=== PATIENT | female | born 1970 | race Caucasian/White ===

== ENCOUNTER 2020-06-01 10:09 | Outpatient (REF) | payer OTHER, SELFPAY ==
--- NOTE | ~2020-06-01 | XR_ITS ---
EXAMINATION: XR FOOT, RIGHT CLINICAL INFORMATION: Injury of right foot COMPARISON: None TECHNIQUE: AP, lateral, and oblique views of the right foot. FINDINGS: Fifth toe: There is mild arthrosis of the PIP joint with marginal osteophytes and subchondral cystic change. I do not see a fracture. There is fusion across the DIP joint There is a moderate-sized plantar calcaneal spur. 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 No fracture.
== END 2020-06-01 10:10 | disposition home or self-care (01) ==
LOC: HO.XRAY 10:09
PROVIDERS: PCP Family Medicine; Visit Provider Family Medicine
DX: S99.921A Unspecified injury of right foot, initial encounter (principal)
CPT/HCPCS: 73630

== ENCOUNTER 2020-09-03 15:30 | Outpatient (REF) | payer OTHER, SELFPAY ==
--- NOTE | ~2020-09-03 | XR_ITS ---
EXAMINATION: XR HAND, LEFT CLINICAL INFORMATION: Left thumb pain COMPARISON: None TECHNIQUE: PA, lateral, and oblique views of the left hand. FINDINGS: Bone alignment is normal. No fracture or dislocation is seen. There is mild arthritis at the first SNF joint with joint space narrowing. Joint spaces are otherwise normal. Soft tissues are normal. XR/XR hand LT min 3V IMPRESSION: Mild arthritis at the first SNF joint.
== END 2020-09-03 15:31 | disposition home or self-care (01) ==
LOC: HO.XRAY 15:30
PROVIDERS: PCP Family Medicine; Visit Provider Family Medicine
DX: M79.645 Pain in left finger(s) (principal)
CPT/HCPCS: 73130

== ENCOUNTER 2020-12-28 08:52 | Day surgery (SDC) | payer OTHER, SELFPAY ==
[2020-12-25 09:51] VITALS: BMI 28.3
--- NOTE | 2020-12-27 10:45 | HO.ANESPROP2 ---
Documented by User: Naomi Garibay NP 12/27/20 10:45 HPI - Anesthesia Eval Consult details Narrative: 50yo F for Upper Endoscopy with Balloon Dilitation PMFSH Past Medical History Medical History Asthma COVID-19 vaccine series completed GERD (gastroesophageal reflux disease) Migraines Surgical History Surgical History History of esophagogastroduodenoscopy (EGD) History of surgery on left wrist Hx of appendectomy Hx of section Hx of laparoscopy Hx of tubal ligation Social History Social History Patient Tobacco Use Status: Current everyday Tobacco user Tobacco use type: Cigarette Cigarettes Per Day: 10 Use of substances other than those prescribed or required for medical reasons: No Have you been hit, kicked, punched, or otherwise hurt by someone within the past year? If so, by whom?: No Are you DNR?: No Advance Directives: No Advance Directives Information Provided: Yes Advance Directives on File: No Recently lost weight without trying: No Eating poorly because of decreased appetite: No Nutrition Risks: No Nutritional Risk Poor oral hygiene: No (lower partial plate) Meds Allergies Allergy/AdvReac Type Severity Reaction Status Date / Time rabbit dander Allergy Severe asthma dx Verified 12/25/20 09:51 when got a rabbit as a pet (no longer has) shellfish derived Allergy Intermediate itching/ pepper Unverified 12/25/20 09:49 [SHELLFISH DERIVED] taste sulfamethoxazole Allergy Intermediate Hives Unverified 12/25/20 09:49 [From BACTRIM] trimethoprim [From BACTRIM] Allergy Intermediate Hives Unverified 12/25/20 09:49 Home Medications Medication Instructions Recorded Confirmed Last Taken Type albuterol sulfate 90 mcg/actuation 2 puff INHALATION Q4-6H PRN 12/25/20 12/25/20 Unknown History aerosol inhaler (Ventolin HFA) omeprazole 20 mg tablet,delayed 20 mg PO DAILY 12/25/20 12/25/20 Unknown History release Exam Exam Date and Time: December 27, 2020 1045 Height,Weight and Vital Signs: Height 5 ft 5.5 in Weight 78.471 kg Assessment and Plan Assessment Anesthesia Assessment: Chart Reviewed Documented by User: Fariba Longo MD 12/28/20 09:52 PMFSH Past Medical History Medical History Asthma COVID-19 vaccine series completed GERD (gastroesophageal reflux disease) Migraines Family History Family history of problems with anesthesia: No Surgical History Surgical History History of esophagogastroduodenoscopy (EGD) History of surgery on left wrist Hx of appendectomy Hx of section Hx of laparoscopy Hx of tubal ligation History of Problems with Anesthesia: No Social History Social History Patient Tobacco Use Status: Current everyday Tobacco user Tobacco use type: Cigarette Cigarettes Per Day: 10 Use of substances other than those prescribed or required for medical reasons: No Have you been hit, kicked, punched, or otherwise hurt by someone within the past year? If so, by whom?: No Are you DNR?: No Advance Directives: No Advance Directives Information Provided: Yes Advance Directives on File: No Recently lost weight without trying: No Eating poorly because of decreased appetite: No Nutrition Risks: No Nutritional Risk Poor oral hygiene: No (lower partial plate) Meds Allergies Allergy/AdvReac Type Severity Reaction Status Date / Time rabbit dander Allergy Severe asthma dx Verified 12/25/20 09:51 when got a rabbit as a pet (no longer has) shellfish derived Allergy Intermediate itching/ pepper Unverified 12/25/20 09:49 [SHELLFISH DERIVED] taste sulfamethoxazole Allergy Intermediate Hives Unverified 12/25/20 09:49 [From BACTRIM] trimethoprim [From BACTRIM] Allergy Intermediate Hives Unverified 12/25/20 09:49 Home Medications Medication Instructions Recorded Confirmed Last Taken Type albuterol sulfate 90 mcg/actuation 2 puff INHALATION Q4-6H PRN 12/25/20 12/25/20 Unknown History aerosol inhaler (Ventolin HFA) omeprazole 20 mg tablet,delayed 20 mg PO DAILY 12/25/20 12/25/20 Unknown History release Exam Airway Mallampati Class: II TM Dist: >3cm Neck ROM: Full Assessment and Plan Assessment Anesthesia Assessment: Anesthesia Plan Discussed Final Anesthetic Review Family History of Problems with Anesthesia: No History of Problems with Anesthesia: No NPO: Yes ASA Class: II Final Preanesthetic Review: No Changes in Pt Med Stat, Meds/Allgs Chart Reviewed, Consent Obtained/Reviewed and Anes Risks/Benef Reviewed Patient Risk: Low Procedure Risk: Low Assessment/Block/Sedation in SS: Assess/Block/Sedation-SS Anesthetic Plan Anesthetic Plan: MAC: Disposition: Standard PACU
[2020-12-28 09:42] VITALS: BP 147/70; PULSE 59; RESP 15; TEMP 36.6; O2SAT 99; BMI 26.2
[2020-12-28] MEDS: Lactated Ringers 1,000 ML 100 ML IVCONT (10:04)
[2020-12-28 10:59] VITALS: BP 129/74; PULSE 79; RESP 18; TEMP 36.4; O2SAT 100
--- NOTE | 2020-12-28 11:03 | PM.OP ---
Brief Operative Note Date of Service: 12/28/20 Pre-op diagnosis: Dysphagia Post-op diagnosis: other (Esophageal stricture) Procedure: EGD with Balloon dilation with a 15, 16.5, 18, 19, and 20mm Balloon Surgeon: Ravi Jose Anesthesia: MAC Was an Environmental Law Professor used for this Procedure?: No Estimated blood loss (mL): 3.0 Pathology: none sent Condition: stable Disposition: PACU
[2020-12-28 11:15] VITALS: BP 129/76; PULSE 69; RESP 16; TEMP 36.4; O2SAT 100
--- NOTE | 2020-12-28 11:41 | OP_ITS ---
SURGEON: Ravi Jose MD INDICATIONS: Full consent has been obtained from her for this, including risks of bleeding and perforation. PREOPERATIVE DIAGNOSIS: POSTOPERATIVE DIAGNOSIS: PROCEDURE PERFORMED: Esophagogastroduodenoscopy with balloon dilation of esophageal stricture at gastroesophageal junction. ESTIMATED BLOOD LOSS: COMPLICATIONS: ANESTHESIA: Monitored anesthesia care. ASSISTANTS: SPECIMENS: PREOPERATIVE DIAGNOSES: Dysphagia and history of esophageal stricture. POSTOPERATIVE DIAGNOSES: Dysphagia and history of esophageal stricture, esophageal stricture, small hiatal hernia. DESCRIPTION OF PROCEDURE: The patient was placed in the left lateral decubitus position. The Olympus video gastroscope was passed in the posterior oropharynx and upper esophagus under direct vision. The scope was passed slowly into the distal esophagus. The gastroesophageal junction appeared at 38 cm. At this level, was a fibrotic appearing stricture without any associated ulceration nor mass. The scope passed this easily into the stomach. There was a small hiatal hernia. The scope was advanced to pylorus and duodenum was cannulated to the descending portion. The duodenum including the bulb appeared normal without mass or ulceration. The scope was withdrawn back in the stomach. The gastric antrum and body appeared normal with good peristalsis. The scope was retroflexed visualizing the proximal stomach carefully, which appeared normal, without any sign of mass or ulceration. The scope was straightened out and withdrawn back into the esophagus. I used a [employer] incremental balloon to dilate the esophageal stricture from 15 mm to 16.5 mm to 18 mm at the recommended pressure for 60 seconds each. There was some disruption of the stricture noted with heme. I then used another incremental balloon to dilate the stricture from 19 mm to 20 mm at the recommended pressure for 60 seconds each. Post dilation, the stricture was clearly disrupted with heme. The scope was then withdrawn through the esophagus, which appeared otherwise normal. The scope was withdrawn from the patient. She tolerated the procedure well and was returned to recovery area in stable condition. IMPRESSION: 1. Distal esophageal stricture. 2. Small hiatal hernia. PLAN: The patient has been using omeprazole daily, but I would like her to stay on a twice a day and I have given her a prescription for that. I think she may need to stay on that twice a day on a long-term basis. I will plan to see her in 3 months for a followup visit. She was advised to stay off all aspirin and NSAIDs long-term if possible. MD MARIAN Condon/CRESENCIO / [phone]
== END 2020-12-28 11:47 | disposition home or self-care (01) ==
PROVIDERS: PCP Family Medicine; Visit Provider Internal Medicine
PROC: (CPT 43249; principal; 2020-12-28 10:10)
DX: R13.19 Other dysphagia (principal); K22.2 Esophageal obstruction; K44.9 Diaphragmatic hernia without obstruction or gangrene
CPT/HCPCS: 43249; C1726

== ENCOUNTER → 2021-06-19 13:52 | Outpatient (BNVA) | payer OTHER, SELFPAY | PROVIDERS: PCP Family Medicine; Visit Provider Physician Assistant | DX: M79.645 Pain in left finger(s) (principal) | CPT/HCPCS: 20600; 99202; J1020 ==

== ENCOUNTER 2021-10-07 15:03 | Outpatient (REF) | payer OTHER, SELFPAY ==
--- NOTE | ~2021-10-07 | XR_ITS ---
EXAMINATION: XR FOOT, LEFT CLINICAL INFORMATION: Pain. COMPARISON: None TECHNIQUE: AP, lateral, and oblique views of the left foot. FINDINGS: There is no evidence of acute fracture or dislocation of the left foot. No erosive changes are identified. Joint spaces are maintained. Metallic ring is seen overlying the 3rd middle phalanx. Plantar calcaneal spur present. No gas within the soft tissues is identified. No significant soft tissue swelling is appreciated. XR/XR foot LT min 3V IMPRESSION: No bony abnormality of the left foot identified.
== END 2021-10-07 15:04 | disposition home or self-care (01) ==
LOC: HO.XRAY 15:03
PROVIDERS: PCP Family Medicine; Visit Provider Family Medicine
DX: M79.672 Pain in left foot (principal); M77.32 Calcaneal spur, left foot
CPT/HCPCS: 73630

== ENCOUNTER 2021-11-05 14:27 | Outpatient (REF) | payer OTHER, SELFPAY ==
--- NOTE | ~2021-11-05 | MM_ITS ---
EXAMINATION: MM SCREENING DIGITAL BREAST TOMOSYNTHESIS, BILATERAL CLINICAL INFORMATION: Screening. Asymptomatic. The lifetime risk of breast cancer based on the Tyrer-Cuzick Model is 12%. COMPARISON: Outside mammography: 03/29/2014 ([facility]). TECHNIQUE: Digital breast tomosynthesis is performed in both the craniocaudal and mediolateral oblique views along with computer-aided detection (CAD). Synthesized 2D images are generated from the tomosynthesis. FINDINGS: The breasts are heterogeneously dense, which may obscure small masses (ACR BI-RADS breast composition Category c). The left breast is unremarkable and shows no mass or architectural abnormality. Neither breast shows abnormal calcifications. The bilateral axilla and skin contours are unremarkable. Right breast has focal architectural changes with radiating lines mid central 12:00 position. The right MLO view may also suggest an additional small asymmetric density 2.5 cm posterior inferior to the architectural changes. Patient will be recalled for additional imaging. MM/MM tomosynthesis screening BI IMPRESSION: Right: -Focal architectural abnormality mid central 12:00 position. -Question additional small asymmetric density limited to MLO view. Left: -No mammographic evidence of malignancy. ASSESSMENT: BI-RADS 0: Incomplete - Need Additional Imaging Evaluation RECOMMENDATION: 1. Additional views of the right breast (spot CC, spot ML). 2. Targeted ultrasound right breast. 3. Radiology department staff will contact the patient for additional imaging. This patient's information was entered into a reminder system with a target due date for their next mammogram.
== END 2021-11-05 14:28 | disposition home or self-care (01) ==
LOC: HO.MAMMO 14:27
PROVIDERS: PCP Family Medicine; Visit Provider Family Medicine
DX: Z12.31 Encounter for screening mammogram for malignant neoplasm of breast (principal)
CPT/HCPCS: 77063; 77067

== ENCOUNTER 2021-12-09 13:28 | Outpatient (REF) | payer OTHER, SELFPAY ==
--- NOTE | ~2021-12-09 | MM_ITS ---
EXAMINATION: MM DIAGNOSTIC DIGITAL BREAST TOMOSYNTHESIS, RIGHT US DIAGNOSTIC ULTRASOUND BREAST, RIGHT CLINICAL INFORMATION: Recall from screening for focal architectural abnormality mid central 12:00 right breast. Question additional small asymmetric density on MLO view. COMPARISON: Mammography: 11/05/2021, outside mammography 03/29/2014 ([facility]). TECHNIQUE: Digital breast tomosynthesis is performed. 2D images are generated from the tomosynthesis. The following views are obtained: Spot CC and spot ML. Ultrasound right breast is targeted to the upper breast. Patient is imaged arm up and arm down as well as supine and semiupright. FINDINGS: The breasts are heterogeneously dense, which may obscure small masses (ACR BI-RADS breast composition Category c). The additional spot views confirm focal radiating lines mid 12:00 position approximately 6.5 cm from nipple. The additional asymmetric density questioned inferior to the area of concern on MLO view is not appreciated on the additional views. Ultrasound does not reveal a correlated for the architectural abnormality. There is no cystic or solid mass or focal shadowing. Results are discussed with the patient at time of visit. Patient believes she feels a subtle palpable area in the area of mammographic concern. There is been no prior history of right breast surgery or known trauma to the right breast. Stereotactic sampling is recommended. Results and recommendation called to medical librarian (Carola) for Toney Hampton CNP on 12/09/2021. MM/MM tomosynthesis added views R IMPRESSION: -Additional mammography confirms focal architectural changes mid 12:00 position. -No ultrasound correlate. ASSESSMENT: BI-RADS 4: Suspicious RECOMMENDATION: Stereotactic biopsy architectural abnormality right breast. This patient's information was entered into a reminder system with a target due date for their next mammogram.
== END 2021-12-09 13:29 | disposition home or self-care (01) ==
LOC: HO.MAMMO 13:28
PROVIDERS: PCP Family Medicine; Visit Provider Family Medicine
DX: N64.89 Other specified disorders of breast (principal)
CPT/HCPCS: 76642; 77061; 77065

== ENCOUNTER → 2021-12-12 08:27 | Outpatient (BNVA) | payer OTHER, SELFPAY | PROVIDERS: PCP Family Medicine; Visit Provider Surgery | DX: R92.8 Other abnormal and inconclusive findings on diagnostic imaging of breast (principal) | CPT/HCPCS: 99212 ==

== ENCOUNTER 2021-12-16 08:04 | Outpatient (REF) | payer OTHER, SELFPAY ==
--- NOTE | ~2021-12-16 | MM_ITS ---
EXAMINATION: STEREOTACTIC TOMOSYNTHESIS-GUIDED VACUUM-ASSISTED BREAST BIOPSY, RIGHT SPECIMEN RADIOGRAPH, RIGHT POST PROCEDURE DIGITAL BREAST TOMOSYNTHESIS, RIGHT CLINICAL INFORMATION: Focal architectural changes mid 12:00 right breast, ultrasound occult. COMPARISON: Mammography 11/05/2021, 12/09/2021, ultrasound 12/09/2021; outside mammography 03/29/2014 ([facility]). TECHNIQUE/PROCEDURE: Informed consent was obtained from the patient after discussion of the benefits, risks, and alternatives to biopsy today. Patient appeared to understand. Gave opportunity for questions. Patient signed consent form. BIOPSY TABLE: [employer] Affirm Prone Biopsy System. LESION: Architectural changes mid 12:00 right breast. LOCAL ANESTHESIA: 25 mL carbonated 1% lidocaine. DERMATOTOMY: Single skin sadia dermatotomy performed. NEEDLE: The [employer] 9-gauge vacuum assisted core biopsy device. APPROACH: Craniocaudal. TARGETING: Combination of digital breast tomosynthesis and stereotactic digital mammography used for targeting. CORES: 8. CLIP: [employer] Cylinder-shaped marker. SPECIMEN RADIOGRAPH: Specimen radiograph is taken in separate room using digital mammography. There are scattered denser fibroglandular areas in the cores. POST PROCEDURE DIGITAL BREAST TOMOSYNTHESIS RIGHT: The post biopsy mammogram is performed in separate room using separate digital breast tomosynthesis equipment from the biopsy procedure. CC and ML views are obtained. 2-D synthesized images are generated from the tomography. The breasts are heterogeneously dense, which may obscure small masses (breast composition category: c). The clip marker is in position. No gross hematoma. The patient tolerated the procedure well. No immediate complications. Home instructions reviewed with the patient. Final pathology results are pending. MM/MM stereotactic biopsy RT IMPRESSION: 1. Digital tomosynthesis-guided core biopsy right breast with clip placement. 2. Specimen radiograph taken and post procedure mammogram. There is satisfactory positioning of the biopsy clip. 3. Final pathology results pending. An addendum report will be issued.
[2021-12-16] MEDS: Lidocaine HCl 1 % 20 ML VIAL SUBCUT (09:23)
[2021-12-16] MEDS: Sodium Bicarbonate 8.4% 50 MEQ/50 ML VIAL SUBCUT (09:24)
== END 2021-12-16 08:05 | disposition home or self-care (01) ==
LOC: HO.MAMMO 08:04
PROVIDERS: PCP Family Medicine; Visit Provider Surgery
DX: R92.8 Other abnormal and inconclusive findings on diagnostic imaging of breast (principal)
CPT/HCPCS: 19081; 88305; 88341; 88342; A4648

== ENCOUNTER → 2021-12-19 13:17 | Outpatient (BNVA) | payer OTHER, SELFPAY | PROVIDERS: PCP Family Medicine; Visit Provider Surgery | DX: R92.8 Other abnormal and inconclusive findings on diagnostic imaging of breast (principal) | CPT/HCPCS: 99212 ==

== ENCOUNTER 2022-05-12 10:28 | Outpatient (REF) | payer OTHER, SELFPAY ==
--- NOTE | ~2022-05-12 | MM_ITS ---
EXAMINATION: MM DIAGNOSTIC DIGITAL BREAST TOMOSYNTHESIS, RIGHT CLINICAL INFORMATION: Short interval six-month follow-up possible discordant right breast stereotactic biopsy for architectural distortion 12:00 position mid depth) sclerosing adenosis, no atypia or malignancy). Patient declined open surgical biopsy. COMPARISON: Mammography: 12/16/2021, 12/09/2021, 11/05/2021; outside mammography 03/29/2014 ([facility]). TECHNIQUE: Digital breast tomosynthesis is performed in both the craniocaudal and mediolateral oblique views along with computer-aided detection (CAD). Synthesized 2D images are generated from the tomosynthesis. Additional spot right CC and spot right MLO views are obtained. FINDINGS: The breasts are heterogeneously dense, which may obscure small masses (ACR BI-RADS breast composition Category c). Parenchymal pattern is similar to prior exam. There is a biopsy clip marker mid 12:00 right breast in the center of the known architectural changes. There is no developing density or interval mass or interval architectural abnormality. No abnormal calcifications. The axilla and skin contours are unremarkable. Results are discussed with the patient at time of visit. Management options discussed with patient including open surgical biopsy and MRI. MM/MM tomosynthesis diagnostic RT IMPRESSION: Status post biopsy architectural abnormality mid 12:00 right breast. No significant change. ASSESSMENT: BI-RADS 3: Probably Benign RECOMMENDATION: -Consider open surgical biopsy for definitive tissue diagnosis architectural changes right breast. -MRI may also be considered as alternative follow-up. -Otherwise, diagnostic bilateral mammography in 6 months at time of annual exam. This patient's information was entered into a reminder system with a target due date for their next mammogram.
== END 2022-05-12 10:29 | disposition home or self-care (01) ==
LOC: HO.MAMMO 10:28
PROVIDERS: PCP Family Medicine; Visit Provider Surgery
DX: R92.8 Other abnormal and inconclusive findings on diagnostic imaging of breast (principal)
CPT/HCPCS: 77061; 77065

== ENCOUNTER → 2022-07-10 14:15 | Outpatient (BNVA) | payer OTHER, SELFPAY | PROVIDERS: PCP Family Medicine; Visit Provider Surgery | DX: R92.8 Other abnormal and inconclusive findings on diagnostic imaging of breast (principal) | CPT/HCPCS: 99212 ==

== ENCOUNTER 2022-08-11 08:11 | Outpatient (REF) | payer OTHER, SELFPAY ==
--- NOTE | ~2022-08-11 | MM_ITS ---
EXAMINATION: MM MAMMOGRAM GUIDED RFID LOCALIZATION BREAST, RIGHT CLINICAL INFORMATION: Architectural abnormality upper right breast with possibly discordant stereotactic biopsy 12/16/2021 (benign breast tissue with sclerosing adenosis, no atypia or malignancy). COMPARISON: Mammography 05/12/2022, 12/16/2021, 12/09/2021, 11/05/2021, outside mammography 03/29/2014 ([facility]). TECHNIQUE NEEDLE LOC: Proper informed consent is obtained from the patient after discussion of the procedure, potential risks and complications, and alternatives including declining the procedure today. Patient was given an opportunity for questions. The patient appeared to understand. The patient consented to the procedure and signed the consent form. GUIDANCE: Digital mammography. APPROACH: Cranio-caudal. TARGET: Cylinder shaped clip marker. ANESTHESIA: carbonated lidocaine 1%: 7 mL. LOCALIZATION SYSTEM: -[employer] LOCallizer Wire-Free Guidance System with 12g needle applicator. -Length: 7 cm. -RADIOFREQUENCY TAG: ID # [id number]. DERMATOTOMY: Single skin-sadia dermatotomy performed. RF Tag ID confirmed with LOCalizer Guidance System prior to placement. The skin is prepped and local anesthesia administered. The needle is positioned and RFID tag deployed. Final images demonstrate the LOCalizer RF tag to reside within 3 mm of the cylinder shaped clip marker. Pulmonary instructions reviewed with the patient prior to discharge. Comment: During the procedure, patient had a vasovagal reaction with sweating and nausea and vomiting and headache. Patient was placed in Trendelenburg position with legs elevated. Patient was eventually able to complete procedure successfully. Patient declined being seen in the emergency department. After observation in office, patient felt comfortable to leave office. Approximately one hour follow-up telephone call noted patient at home feeling well without concerns. MM/MM needle loc RT IMPRESSION: -Status post right breast RFID localization.
[2022-08-11] MEDS: Lidocaine HCl 1 % 20 ML VIAL 9 ML SUBCUT (10:01)
[2022-08-11] MEDS: Sodium Bicarbonate 8.4% 50 MEQ/50 ML VIAL SUBCUT (10:02)
== END 2022-08-11 08:12 | disposition home or self-care (01) ==
LOC: HO.MAMMO 08:11
PROVIDERS: PCP Family Medicine; Visit Provider Surgery
DX: R92.8 Other abnormal and inconclusive findings on diagnostic imaging of breast (principal)
CPT/HCPCS: 19281; C1819

== ENCOUNTER 2022-08-20 05:55 | Day surgery (SDC) | payer OTHER, SELFPAY ==
[2022-08-14 16:17] VITALS: BMI 30.9
--- NOTE | ~2022-08-20 | MM_ITS ---
EXAMINATION: MM SPECIMEN X-RAY BREAST, RIGHT BREAST CLINICAL INDICATION: Architectural abnormality upper right breast with possibly discordant stereotactic biopsy 12/16/2021 (benign breast tissue with sclerosing adenosis, no atypia or malignancy). Status post excision. COMPARISON: Mammography 08/11/2022, 08/09/2022, 12/16/2021, 12/09/2021 TECHNIQUE: Single radiograph of the excised breast tissue is performed using digital mammography. FINDINGS: The specimen shows radiofrequency localizer tag along with the cylinder shaped biopsy clip marker. MM/MM surgical specimen IMPRESSION: The excised breast tissue specimen contains both the radiofrequency localizer tag in the cylinder shaped biopsy clip marker. Pathology pending.
[2022-08-20 06:09] VITALS: BP 128/69; PULSE 67; RESP 16; TEMP 36.2; O2SAT 97; BMI 29.0
--- NOTE | 2022-08-20 07:20 | MHC.SHP ---
Pre-Procedural Eval Section A Date of Service: 08/20/22 The patient is an INPATIENT: No Changes since office visit: Yes Patient answered all questions; No Cold of Flu in the past 2 weeks, No New Medical Problems and No Changes in Medication The History & Physical has been completed within 30 days and I have reviewed it.: Yes Section B Chief Complaint: Other abnormal and inconclusive findings on diagno Allergies: Allergies Allergy/AdvReac Type Severity Reaction Status Date / Time rabbit dander Allergy Severe asthma dx Verified 08/14/22 15:52 when got a rabbit as a pet (no longer has) shellfish derived Allergy Intermediate itching/ pepper Verified 08/14/22 15:52 [SHELLFISH DERIVED] taste sulfamethoxazole Allergy Intermediate Hives Verified 08/14/22 15:52 [From BACTRIM] trimethoprim [From BACTRIM] Allergy Intermediate Hives Verified 08/14/22 15:52 Plan Diagnosis/Plan: Unchanged I have reviewed the history and physical and performed a pertinent physical examination on my patient. No changes have occurred unless specified. Time Spent With Patient Time: Total time managing care of this patient today ____ minutes.
--- NOTE | 2022-08-20 07:21 | P.CONAN_ITS ---
HPI - Anesthesia Eval Consult details Narrative: 52 yo female patient for Right breast lumpectomy with LOCalizer PMFSH Active Problems Active Problems: All Active Problems (Updated 08/20/22 @ 08:36 by Heavenly Ha MD) Abnormal mammogram of right breast (Acute) Smoker Past Medical History Medical History Asthma COVID-19 vaccine series completed GERD (gastroesophageal reflux disease) Migraines Family History Family History Paternal Aunt Breast cancer Maternal Uncle Lung cancer Paternal Uncle Pancreatic cancer Family history of problems with anesthesia: No Surgical History Surgical History History of esophagogastroduodenoscopy (EGD) History of surgery on left wrist Hx of appendectomy Hx of section Hx of laparoscopy Hx of tubal ligation History of Problems with Anesthesia: No Social History Social History (Updated 08/20/22 @ 07:35 by Heavenly Ha MD) Patient Tobacco Use Status: Current everyday Tobacco user Tobacco use type: Cigarette Cigarettes Per Day: 4 Current occupational status: employed 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 Meds Allergies Allergy/AdvReac Type Severity Reaction Status Date / Time rabbit dander Allergy Severe asthma dx Verified 08/14/22 15:52 when got a rabbit as a pet (no longer has) shellfish derived Allergy Intermediate itching/ pepper Verified 08/14/22 15:52 [SHELLFISH DERIVED] taste sulfamethoxazole Allergy Intermediate Hives Verified 08/14/22 15:52 [From BACTRIM] trimethoprim [From BACTRIM] Allergy Intermediate Hives Verified 08/14/22 15:52 Active Medications: Current Medications Lactated Ringer's (Lr) 1,000 mls @ 100 mls/hr IVCONT .Q10H [facility] Home Medications Medication Instructions Recorded Confirmed Last Taken Type albuterol sulfate 90 mcg/actuation 2 puff inhalation Q4-6H PRN 12/25/20 08/14/22 Unknown History aerosol inhaler (Ventolin HFA) Wheezing omeprazole 20 mg tablet,delayed 20 mg PO DAILY 12/25/20 08/14/22 Unknown History release Exam Exam Date and Time: August 20, 202221 Height,Weight and Vital Signs: Height 5 ft 6 in Weight 81.647 kg Last Vital Signs Temp 97.2 F 08/20/22 06:09 Pulse 67 08/20/22 06:09 Resp 16 08/20/22 06:09 BP 128/69 08/20/22 06:09 Pulse Ox 97 08/20/22 06:09 O2 Del Method Room Air 08/20/22 06:09 Airway Mallampati Class: II TM Dist: >3cm Neck ROM: Full Partial: Lower Loose/Missing/Broken Teeth: Yes (Partial dentures bottom(home), denies broken or loose teeth) Heart: RRR Lungs: CTAB Assessment and Plan Assessment Anesthesia Assessment: Anesthesia Plan Discussed and Chart Reviewed Final Anesthetic Review Family History of Problems with Anesthesia: No History of Problems with Anesthesia: No NPO: Yes ASA Class: II Final Preanesthetic Review: No Changes in Pt Med Stat, Meds/Allgs Chart Reviewed, Consent Obtained/Reviewed and Anes Risks/Benef Reviewed Patient Risk: Low Procedure Risk: Low Assessment/Block/Sedation in SS: Assess/Block/Sedation-SS Anesthetic Plan Anesthetic Plan: GA Disposition: Standard PACU
--- NOTE | 2022-08-20 08:52 | P.OP_ITS ---
Operative Note Operative Note Date of Service: 08/20/22 Narrative: Preoperative diagnosis:Abnormal mammogram right Postoperative diagnosis:same Procedure:Right breast lumpectomy with LOCalizer Surgeon: Tai Gupta MD Glass Etcher Helper: none Anesthesia:General LMA Indications for procedure:52-year-old female patient presenting with a recent mammogram which revealed architectural distortion in the right breast at 12 o'clock position. radiologic guided core biopsy revealed benign breast tissue however findings were discordant with the radiologic findings. She presents today for biopsy /lumpectomy with localizer. Operative findings: Marking clip and LOCalizer within the specimen x-ray. Gross pathology revealed dense breast tissue with no suspicious mass. Final pathology pending. Specimen: Right breast lumpectomy Estimated blood loss: less than 2 mL Complications: none Procedure details: patient was brought to the OR placed in a supine position. After administering general anesthesia patient's right breast was prepped with ChloraPrep and draped in a sterile fashion. A surgical time-out was called the consent confirmed. Patient received preoperative antibiotics and Venodyne boots were in place. A previously placed clip was noted on x-ray in the 12 o'clock position. The LOCalizer device the area of increased activity was identified in the 12 o'clock position. A curvilinear incision was made above the nipple- areolar complex in the upper breast. This was carried out through subcutaneous tissue. Superior inferior skin flaps were then created. Dissection was continued up approximately 3 cm to the area of increased activity. A core of tissue surrounding this localizer clip was excised using combination of electrocautery dissection and sharp dissection with a curved Stevens scissors. Hemostasis was maintained at all times using electrocautery. The specimen was removed and a specimen x-ray performed using the [employer]. Marking clip and localizer clip was noted within the specimen. This was sent for immediate gross pathology, the above findings were noted. The wounds were then irrigated with saline solution and suctioned dry. Deep breast tissue was then reapproximated using interrupted 3-0 Polysorb sutures. Dermis was reapproximated using interrupted 3-0 Polysorb sutures. Skin was closed using a running subcuticular 4-0 Polysorb suture. Steri-Strips, 2 x 2 gauze and Tegaderm were then applied. The patient tolerated the procedure well. Sponge, instrument, needle counts reported as correct. Patient was transferred to PACU in stable condition.
[2022-08-20 08:53] VITALS: BP 125/65; PULSE 90; RESP 16; TEMP 37; O2SAT 97
[2022-08-20 08:58] VITALS: BP 131/64; PULSE 86; RESP 16; O2SAT 97
[2022-08-20 09:03] VITALS: BP 134/62; PULSE 83; RESP 16; O2SAT 97
[2022-08-20 09:08] VITALS: BP 127/66; PULSE 83; RESP 16; O2SAT 97
[2022-08-20 09:23] VITALS: BP 128/68; PULSE 81; RESP 16; TEMP 37; O2SAT 97
== END 2022-08-20 09:53 | disposition home or self-care (01) ==
PROVIDERS: PCP Family Medicine; Visit Provider Surgery
PROC: (CPT 19301; principal; 2022-08-20 07:30)
DX: N60.21 Fibroadenosis of right breast (principal); N60.81 Other benign mammary dysplasias of right breast; J45.909 Unspecified asthma, uncomplicated; K21.9 Gastro-esophageal reflux disease without esophagitis; G43.909 Migraine, unspecified, not intractable, without status migrainosus; Z79.899 Other long term (current) drug therapy; Z88.1 Allergy status to other antibiotic agents; Z88.2 Allergy status to sulfonamides; F17.210 Nicotine dependence, cigarettes, uncomplicated
CPT/HCPCS: 19301; 88307; 88329; 88341; 88342; J0690; J1100; J2250; J2405; J3010

== ENCOUNTER → 2022-08-28 10:32 | Outpatient (BNVA) | payer OTHER, SELFPAY | PROVIDERS: PCP Family Medicine; Visit Provider Surgery | DX: R92.8 Other abnormal and inconclusive findings on diagnostic imaging of breast (principal); Z98.890 Other specified postprocedural states | CPT/HCPCS: 99212 ==

== ENCOUNTER → 2022-12-01 09:00 | Outpatient (BNV) | payer OTHER, SELFPAY | PROVIDERS: Visit Provider Radiology Diagnostic Radiology | DX: R92.8 Other abnormal and inconclusive findings on diagnostic imaging of breast (principal); Z98.890 Other specified postprocedural states | CPT/HCPCS: 77062; 77066 ==

== ENCOUNTER 2022-12-01 09:30 | Outpatient (REF) | payer OTHER, SELFPAY ==
--- NOTE | ~2022-12-01 | MM_ITS ---
EXAMINATION: MM DIAGNOSTIC DIGITAL BREAST TOMOSYNTHESIS, BILATERAL CLINICAL INFORMATION: Follow-up benign excisional biopsy upper outer quadrant right breast. Bilateral screening to establish new baseline. COMPARISON: Mammography: 05/12/2022, 12/09/2021, 11/05/2021, and 03/29/2014. TECHNIQUE: Digital breast tomosynthesis is performed in both the craniocaudal and mediolateral oblique views along with computer-aided detection (CAD). Synthesized 2D images are generated from the tomosynthesis. FINDINGS: The breasts are heterogeneously dense, which may obscure small masses (ACR BI-RADS breast composition Category c). There are architectural changes in the upper outer right breast consistent with history of recent lumpectomy. There is otherwise no suspicious mass, suspicious calcifications, or developing region of distortion in either breast. MM/MM tomosynthesis diagnostic BI IMPRESSION: No mammographic evidence of malignancy. Benign findings right breast related to recent benign excisional biopsy. ASSESSMENT: BI-RADS BI-RADS 2 - Benign Findings RECOMMENDATION: 1 year F/U Results were provided to the patient at time of visit by the technologist. This patient's information was entered into a reminder system with a target due date for their next mammogram.
== END 2022-12-01 09:31 | disposition home or self-care (01) ==
LOC: HO.MAMMO 09:30
PROVIDERS: Visit Provider Surgery
DX: R92.8 Other abnormal and inconclusive findings on diagnostic imaging of breast (principal)
CPT/HCPCS: 77062; 77066

== ENCOUNTER → 2024-09-02 09:30 | Outpatient (BNV) | payer BC, SELFPAY | PROVIDERS: Visit Provider Internal Medicine | DX: N64.4 Mastodynia (principal); N60.22 Fibroadenosis of left breast | CPT/HCPCS: 76642; 77062; 77066 ==

== ENCOUNTER 2024-09-02 09:31 | Outpatient (REF) | payer BC, SELFPAY ==
--- NOTE | ~2024-09-02 | US_ITS ---
EXAMINATION: MM DIAGNOSTIC DIGITAL BREAST TOMOSYNTHESIS, BILATERAL Limited left breast ultrasound. CLINICAL INFORMATION: Left breast palpable lump and pain previously, patient does not have palpable lump or pain today. COMPARISON: Mammography: Comparison is made with relevant prior exams. TECHNIQUE: Digital breast mammography with tomosynthesis is performed in both the craniocaudal and mediolateral oblique views along with computer-aided detection (CAD). FINDINGS: The breasts are heterogeneously dense, which may obscure small masses (ACR BI-RADS breast composition Category c). There are no significant masses, abnormal calcifications, or other abnormalities. Targeted color Doppler ultrasound scanning in the left breast area of patient's previous palpable lump and pain from 7-11 o'clock demonstrates normal follicular breast tissue. There is no sonographic abnormal findings. Results are provided to the patient at time of visit by the technologist. US/US breast LT limited mamm only IMPRESSION: Right: Negative. Left: No mammographic or sonographic abnormal findings to account for the patient's previously felt left breast palpable lump and pain. Recommend clinical evaluation and follow-up. ASSESSMENT: BI-RADS BI-RADS 1 - Negative RECOMMENDATION: 1 year F/U This patient's information was entered into a reminder system with a target due date for their next mammogram. Electronically signed by: Roslyn Knight DO 09/02/2024 10:13 AM EDT
== END 2024-09-02 09:32 | disposition home or self-care (01) ==
LOC: HO.MAMMO 09:31
PROVIDERS: Visit Provider Family Medicine
DX: N63.25 Unspecified lump in the left breast, overlapping quadrants (principal)
CPT/HCPCS: 76642; 77062; 77066